=== PATIENT | female | born 1955 | race African-American/Black ===

== ENCOUNTER 2016-06-12 13:55 | Observation (INO) | payer OTHER ==
[2016-06-12] MEDS ORDERED: ASPIRIN 81 MG CHEW TAB PO ONE (13:59)
[2016-06-12] MEDS ORDERED: NITROGLYCERIN 0.4 MG TAB.SUBL SL ONE ×4 (14:00→14:49)
[2016-06-12 14:11] LABS: BASOPHILS % 0.7 (0.0-1.5); EOSINOPHILS % 2.1 % (0.0-6.8); LYMPHOCYTES # 2.8 # k/uL (0.6-4.0); MEAN CORPUSCULAR HEMOGLOBIN 28.6 pg (28.0-34.0); MONOCYTES # 0.4 # k/uL (0.0-0.9); NEUTROPHILS # 3.7 # k/uL (1.4-7.7)
[2016-06-12] MEDS ORDERED: ONDANSETRON HCL/PF 4 MG/ 2ML VIAL ONE (14:13)
[2016-06-12] MEDS ORDERED: ONDANSETRON HCL/PF 4 MG/ 2ML VIAL IVP ONE (14:16)
[2016-06-12 14:29] LABS: eGFR (African) > 60; eGFR (Non-African) > 60
[2016-06-12] MEDS ORDERED: MAG HYDROX/AL HYDROX/SIMETH 30 ML, Lidocaine 2%Visc 15ml 20 MG, PHENobarb/HYOSCY/ATROPI... PO ONE ×3 (14:49)
[2016-06-12] MEDS ORDERED: MAG HYDROX/AL HYDROX/SIMETH 30 ML UDC PO ONE (14:54)
[2016-06-12] MEDS ORDERED: Lidocaine 2%Visc 15ml 20 MG/ML UDC ONE (14:54)
--- NOTE | 2016-06-12 15:02 | ED Physician Documentation ---
Chest Pain - HISTORIAN Historian: patient - HPI Stated Complaint: Chest Pressure Chief Complaint: Chest Pain Onset: hours (1200) Timing: sudden onset, still present Last known Well Date: 06/12/16 Last Known Well Time: 12:00 Last known Well Code/Unknown Code: Known Context: rest Severity: severe Quality: pressure, tightness, other ("something is sitting on my chest") Chest Pain Radiation: arms Chest Pain Signs/Symptoms: nausea, dizziness, dyspnea. denies: vomiting, diaphoresis, cool extremities, tachypnea, tachycardia, hypotension, palpitations Worsened By: nothing Relieved By: nothing Further Comments: yes (60 year old female patient presents with chest pain. States "it feels like my heart is pounding and someone is sitting on my chest", rates pain 8/10, accompanied by SOB and nausea. Denies diaphoresis with onset. Patient reports she has been out of her insulin for some time and out of her lisinopril. Last dose of lisinopril was yesterday.) - ROS CONST: none MS/LYMPH: none GI/: nausea. denies: abdominal pain, problems urinating, vomiting, diarrhea EYES/ENT: none SKIN/ENDO: none NEURO/PSYCH: none - PAST HX PA risk factors: hypertension, diabetes Type 2, hyperlipidemia, other (lumbar disc disease) DVT/PE Risk Factors: none TAD/AAA risk factors: none Neuro deficit: none GI disease: none Lung disease: none Surgeries/Procedures: hysterectomy, other (Lumbar x 3 (2009, 2010, 2011) L3, L4 , L5) Allergies/Adverse Reactions: Allergies Allergy/AdvReac Type Severity Reaction Status Date / Time No Known Allergies Allergy Verified 10/03/14 18:41 Home Medications: Ambulatory Orders Medication Instructions Recorded Atorvastatin Calcium [Lipitor] 40 mg PO DAILY u2 08/31/15 - SOCIAL HX Smoking History: cigarettes - FAMILY HX Family HX: CAD over 55 - VITAL SIGNS Vital Signs: Vital Signs Temp Pulse Resp BP Pulse Ox 97 F L 82 18 190/108 99 06/12/16 13:55 06/12/16 13:59 06/12/16 13:55 06/12/16 13:55 06/12/16 13:59 - REVIEWED ASSESSMENTS Nursing Assessment Reviewed: Yes Vitals Reviewed: Yes Progress - Progress Progress: CP improved 4/8 after 1st nitro, 2nd given CP 2/8 after 2nd nitro 1450 Patient continues to c/o "pressure" only, states pain is gone. 3rd nitro given and nitro paste applied. Will also give GI cocktail. Recommended admission or transfer for cardiac evaluation. Patient states she would "prefer admission at [facility]". [address] Jasmine, will keep for observation admission, R/O PA. Will need to restart insulin therapy as well. Patient agrees to admission - EKG/XRAY/CT EKG: rhythm (SR, no acute changes, rate 75) ED Results Lab/Radiology - Lab Results Lab Results: Lab Results 06/12/16 06/12/16 06/12/16 14:05 14:05 14:05 WBC 7.20 K/ul K/ul (4.00-12.00) RBC 4.70 M/ul M/ul (3.90-5.20) Hgb 13.4 g/dL g/dL (12.0-16.0) Hct 40.6 % % (34.5-46.5) MCV 86.6 fl fl (80.0-100.0) MCH 28.6 pg pg (28.0-34.0) MCHC 33.1 g/dL g/dL (30.0-36.0) RDW 12.8 % % (11.3-14.3) Plt Count 266 K/mm3 K/mm3 (130-400) Neut % (Auto) 51.1 % % (39.0-79.0) Lymph % (Auto) 39.5 % % (16.0-50.0) [place] % (Auto) 5.0 % % (0.0-11.0) Eos % (Auto) 2.1 % % (0.0-6.8) Baso % (Auto) 0.7 (0.0-1.5) Neut # 3.7 # k/uL # k/uL (1.4-7.7) Lymph # 2.8 # k/uL # k/uL (0.6-4.0) [place] # 0.4 # k/uL # k/uL (0.0-0.9) Eos # 0.2 # k/uL # k/uL (0.0-0.6) Baso # 0.0 # k/uL # k/uL (0.0-0.5) Reactive Lymphs % 1.6 % % (0.0-5.0) Reactive Lymphs # 0.1 # k/uL # k/uL (0.0-0.8) Sodium 136 mmol/L mmol/L (136-145) Potassium 4.2 mmol/L mmol/L (3.5-5.0) Chloride 100 mmol/L mmol/L (98-110) Carbon Dioxide 29 mmol/L mmol/L (20-32) BUN 13 mg/dL mg/dL (10-26) Creatinine 0.7 mg/dL mg/dL (0.4-1.5) Estimated Creat Clear 136 Est GFR ( Amer) > 60 (60 - ) Est GFR (Non-Af Amer) > 60 (60 - ) Glucose 255 mg/dL H mg/dL (70-99) Calcium 9.8 mg/dL mg/dL (8.5-10.5) Total Bilirubin 0.3 mg/dL mg/dL (0.2-1.2) AST 17 U/L U/L (0-41) ALT 14 U/L U/L (0-45) Alkaline Phosphatase 83 U/L U/L (46-116) Creatine Kinase 158 U/L U/L (0-225) CK-MB (CK-2) 1.2 ng/mL ng/mL (0.0-5.6) Troponin I < 0.03 ng/mL L ng/mL (0.03-0.06) Total Protein 7.5 g/dL g/dL (6.0-8.5) Albumin 4.3 g/dL g/dL (3.0-5.5) - Radiology Radiology Impressions: Chest -one view CLINICAL HISTORY: Chest pain. FINDINGS: Examination of the chest single portable AP view 06/12/2016 1404 hr with no prior film for comparison demonstrates minimal discoid atelectasis in the left base. The right lung is clear. Cardiovascular and mediastinal silhouettes are within normal limits. The aorta is atherosclerotic. Monitor leads superimpose the chest. IMPRESSION: Minimal discoid atelectasis in the left base. Electronically signed on Jun 12, 2016 2:22:35 PM CDT by: Erick Wilkinson - Orders Orders: ED Orders Category Date Time Status Continuous EKG monitoring Q30M Care 06/12/16 13:59 Active Continuous Pulse Oximetry Q30M Care 06/12/16 13:[address] Saline Lock/IV NOW Care 06/12/16 13:59 Active CHEST 1 VIEW [RAD] Stat Exams 06/12/16 13:59 Ordered CBC/PLATELET/DIFF Stat Lab 06/12/16 14:05 Completed CKMB Stat Lab 06/12/16 14:05 Completed CMP Stat Lab 06/12/16 14:05 Completed CREATINE KINASE Stat Lab 06/12/16 14:05 Completed TROPONIN I (cTnI) Stat Lab 06/12/16 14:05 Completed Aspirin Med 06/12/16 13:59 Discontinued 324 mg PO NOW ONE Lidocaine 2%Visc 15ml [Xylocaine] Med 06/12/16 14:54 Discontinued 600 mg .ROUTE .STK-MED ONE Mag Hydrox/Al Hydrox/Simeth [Mylanta] Med 06/12/16 14:54 Discontinued 30 ml PO .STK-MED ONE Mag Hydrox/Al Hydrox/Simeth [Mylanta] 30 ml Med 06/12/16 14:49 Discontinued Lidocaine 2%Visc 15ml [Xylocaine] 20 mg PHENobarb/HYOSCY/ATROPINE/SCOP [] 10 ml PO NOW Nitroglycerin [Nitro-Bid] Med 06/12/16 21:00 Ordered 1 appl TD BID Nitroglycerin [Nitroquick] Med 06/12/16 14:00 Discontinued 0.4 mg SL .STK-MED ONE Nitroglycerin [Nitroquick] Med 06/12/16 14:00 Discontinued 0.4 mg SL NOW ONE Nitroglycerin [Nitroquick] Med 06/12/16 14:16 Discontinued 0.4 mg SL NOW ONE Nitroglycerin [Nitroquick] Med 06/12/16 14:49 Discontinued 0.4 mg SL NOW ONE Ondansetron HCl/Pf [Zofran 4 mg/2 ml] Med 06/12/16 14:13 Discontinued 4 mg .ROUTE .STK-MED ONE Ondansetron HCl/Pf [Zofran 4 mg/2 ml] Med 06/12/16 14:16 Discontinued 4 mg IVP NOW ONE Oxygen Daily Oxygen 06/12/16 14:00 Ordered EKG WITH COMPARISON Stat Ther 06/12/16 13:59 Ordered Chest Pain Physical Exam - EXAM General Appearance: moderate distress EENT: eye inspection normal, [place] Respiratory: no resp. distress, nml breath sounds CVS: reg. 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 Neuro: oriented X3, CN's nml as tested, motor nml, sensation nml, mood/affect nml Discharge Clincal Impression: Chest pain, rule out acute myocardial infarction Chest pain Qualifiers: Chest pain type: unspecified Qualified Code(s): R07.9 - Chest pain, unspecified Hypertension Qualifiers: Hypertension type: essential hypertension Qualified Code(s): I10 - Essential ( primary) hypertension Diabetes mellitus, insulin dependent (IDDM), uncontrolled Qualifiers: Diabetes mellitus complication status: without complication Qualified Code(s): E10.9 - Type 1 diabetes mellitus without complications Referrals: Primary Doctor,No [Primary Care Provider] - 2 Days Home Medications: Ambulatory Orders Atorvastatin Calcium [Lipitor] 40 mg PO DAILY u2 08/31/15 Condition: Stable Disposition: ADMITTED INPATIENT Decision to Admit: NO Decision Time: 15:13
[2016-06-12] MEDS: NITROGLYCERIN 2% 1GM OINT PACKET...G. TD SCH (15:05)
--- NOTE | 2016-06-12 15:05 | Diagnostic Imaging Report ---
[facility] [address] [facility].[address] [address] Report Submission Date: Jun 12, 2016 2:22:35 PM CDT Patient Study Name: VIET JOHNSTON Date: Jun 12, 2016 2:04:19 PM CDT Modality Type: CR Gender: F Description: CHEST : 55 Institution: [facility] Physician JAEL LANZA (CLINIQUE COUNTER MANAGER) - ER Chest -one view CLINICAL HISTORY: Chest pain. FINDINGS: Examination of the chest single portable AP view 06/12/2016 1404 hr with no prior film for comparison demonstrates minimal discoid atelectasis in the left base. The right lung is clear. Cardiovascular and mediastinal silhouettes are within normal limits. The aorta is atherosclerotic. Monitor leads superimpose the chest. IMPRESSION: Minimal discoid atelectasis in the left base. Electronically signed on Jun 12, 2016 2:22:35 PM CDT by: Erick CURRAN
--- NOTE | 2016-06-12 17:38 | History and Physical Report ---
History of Present Illnes - History of Present Illness Reason for Visit: chest pain History of Present Illness: 60 yoAfricanAmerican female who developed some substrenal chest pain at 0900 today. No preciptating factors. No modifying factors noted. Gradually go worse wnd felt like indigestion. Did have some SOB, no diaphoresis noted. Has had some spell where wher heart will beat fast and if she sits down it seems to help. If she takes some Zantac it seems to help. Gets nauseated at times. Having some diarrhea, no blood in stools. 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 denies: Pneumococcal Vaccine Influenza Vaccine: Current for this Influenza Season Pneumonia Vaccine: No Resuscitation Status: Resusciation Status Resuscitation Status Full Code - Unable to Obtain History Unable to Obtain: Yes Review of Systems - Review of Systems Constitutional: negative: Fever, Chills Eyes: negative: pain, vision change ENT: negative: Ear Pain, Ear Discharge, Nose Pain, Nose Discharge, Nose Congestion, Mouth Pain, Throat Pain Respiratory: negative: Cough, Dry, Shortness of Breath, Hemoptysis, SOB with Excertion, Pleuritic Pain, Sputum, Wheezing Cardiovascular: Chest Pain. negative: Palpitations, Orthopnea, Paroxysmal Noc. Dyspnea, Edema, Light Headedness Gastrointestinal: Nausea. negative: Vomiting, Abdominal Pain, Diarrhea, Constipation, Melena, Hematochezia Genitourinary: negative: Dysuria, Frequency, Incontinence, Hematuria Musculoskeletal: negative: Neck Pain, Shoulder Pain, Arm Pain Skin: negative: Rash Neurological: negative: Weakness, Numbness, Incoordination, Change in Speech, Confusion, Seizures - Medications/Allergies Allergies/Adverse Reactions: Allergies Allergy/AdvReac Type Severity Reaction Status Date / Time No Known Allergies Allergy Verified 10/03/14 18:41 Current Inpatient Medications: Current Inpatient Medications Nitroglycerin (Nitro-Bid) 1 appl TD BID [facility] Last Admin: 06/12/16 15:05 Dose: 1 appl Sodium Chloride (Normal Saline Flush) 3 ml IV BID [facility] Exam - Exam Vital Signs: Vital Signs (72 hours) 06/12/16 15:35 Pulse Rate [ 68 Pulse ox] Respiratory 18 Rate Blood Pressure 170/68 [Left Arm] O2 Sat by Pulse 99 Oximetry General: Alert, Oriented to Person, Oriented to Place, Oriented to Time, Cooperative HEENT: Atraumatic, PERRLA, EOMI, Mouth Mucous membr. moist/[place], Nose Mucous membr. moist/[place], Hearing Grossly Normal Neck: Normal Range of Motion Carotids: WNL Thyroid: WNL Lungs: Clear to auscultation, Normal air movement, Speaks full Sentences. No: Wheezes, Rales, Rhonchi Cardiovascular: Regular rate, Normal S1, Normal S2, No murmurs. No: Gallops, Rubs, Murmur Murmur: No: Systolic Murmur Abdomen: Normal bowel sounds, Soft, No hepatospenomegaly, No masses, Other ( mild epigastric tenderness). No: Distended Integumentary: Normal, [place], Warm, Dry Extremities: No clubbing, No cyanosis, No edema, Normal pulses, No tenderness/ swelling Neurological: Normal gait, Normal speech, Strength Equal Bilat, Normal tone, Sensation intact, Cranial nerves 3-12 NL, Reflexes 2+ Psych/Mental Status: Mental status NL, Mood NL, Appropriate Affect, Intact Judgment Assessment/Plan - Assessment/Plan (1) Chest pain Status: Acute Current Visit: Yes Qualifiers: Chest pain type: unspecified Qualified Code(s): R07.9 - Chest pain, unspecified Assessment: will get serial cardiac enzymes and EKGs. observe for any further chest pain. Will start PPI for possible GERDs. (2) Diabetes mellitus, insulin dependent (IDDM), uncontrolled Status: Chronic Current Visit: Yes Qualifiers: Diabetes mellitus complication status: without complication Qualified Code( s): E10.9 - Type 1 diabetes mellitus without complications (3) Hypertension Status: Chronic Current Visit: Yes Qualifiers: Hypertension type: essential hypertension Qualified Code(s): I10 - Essential (primary) hypertension VTE Assessment - RISK FACTOR SCORE VTE RISK FACTOR SCORES: AGE 40-60 YEARS - RISK VTE LOW RISK: SCORE OF 1 OR LESS (RISK PROXIMAL DVT 0.4%) NO PROPHYLAXIS NEEDED
[2016-06-12 17:39] VITALS: BMI 29.5
[2016-06-12] MEDS ORDERED: PANTOPRAZOLE SODIUM 40 MG TABLET PO ONE (17:48)
[2016-06-12] MEDS: SALINE FLUSH 10 ML DISP.SYRIN IV SCH (19:35)
[2016-06-12] MEDS ORDERED: INSULIN REGULAR, HUMAN 100 UNIT/ML 3ML VIAL SQ ONE (20:24)
[2016-06-13] MEDS: INSULIN REGULAR, HUMAN 100 UNIT/ML 3ML VIAL SQ SCH ×2 (07:52→12:08)
[2016-06-13] MEDS ORDERED: HYDROCHLOROTHIAZIDE 25 MG TABLET PO SCH (09:00)
[2016-06-13] MEDS ORDERED: LISINOPRIL 20 MG TABLET PO SCH (09:00)
[2016-06-13] MEDS: NITROGLYCERIN 2% 1GM OINT PACKET...G. TD SCH (09:31)
[2016-06-13] MEDS: SALINE FLUSH 10 ML DISP.SYRIN IV SCH (09:32)
--- NOTE | 2016-06-13 13:01 | Discharge Summary ---
Discharge Summary - Discharge Sumary History of Present Illness: 60 yo female who developed some substrenal chest pain at 0900 today. No precipitating factors. No modifying factors noted. Gradually got worse and felt like indigestion. Did have some SOB, no diaphoresis noted. Has had some spell where where heart will beat fast and if she sits down it seems to help. If she takes some Zantac it seems to help. Gets nauseated at times. Having some diarrhea, no blood in stools Condition at Discharge: Stable Home Medications: Ambulatory Orders Medication Instructions Recorded Atorvastatin Calcium [Lipitor] 40 mg PO DAILY u2 08/31/15 Metformin HCl [Metformin HCl ER] 1,000 mg PO BID #60 tab.er.24 06/13/16 Omeprazole 20 mg PO D #30 capsule. 06/13/16 Consultations this Visit: None Procedures this Visit: None Allergies/Adverse Reactions: Allergies Allergy/AdvReac Type Severity Reaction Status Date / Time No Known Allergies Allergy Verified 10/03/14 18:41 Discharge Summary: Patient had serial cardiac enzymes and EKGs done. Cardiac enzymes remained normal. EKG did not show any acute ischemic changes. Patient denies any further chest pain during the hospitalization. Patient was Protonic 40 mg daily. Social service consult were done to help atient find ways to afford her medications. Patient was given samples of Toujeo upon discharge. Patient was started on a proton pump inhibitor. It was felt that her chest pain was related to gastroesophageal reflux. Upon discharge. Patient was encouraged to start checking her blood sugars on a regular basis. Patient was advised to try to cut down on her caffeine and tobacco intake. Patient was discharged in stable condition - Final Diagnosis (1) Chest pain Problems: [place] to be related to GERDs (2) Diabetes mellitus, insulin dependent (IDDM), uncontrolled Problems: Restart insulin therapy, patient given samples of Toujeo. (3) Hypertension Problems: stable continue with home meds
[2016-06-13 13:51] VITALS: BP 142/68
== END 2016-06-13 13:50 | disposition home or self-care (01) ==
LOC: ED 13:55 → INTOOBSV 15:33 → SOUTH 15:33
PROVIDERS: ADMIT Family Medicine; ATTEND Family Medicine
DX: R07.9 Chest pain, unspecified (principal); E11.9 Type 2 diabetes mellitus without complications; I10 Essential (primary) hypertension
CPT/HCPCS: 71010; 80053; 80061; 82550; 82553; 84484; 85025; 96372; 96374; 99284; J2405; A9270-GY; G0378; G0379; J1815; S1016

== ENCOUNTER 2018-01-05 09:00 | Outpatient (CLI) | payer OTHER ==
[2018-01-05 10:03] LABS: eGFR (Non-African) > 60
== END 2018-01-05 13:17 ==
LOC: LAB 09:00
PROVIDERS: ATTEND Family Medicine
DX: E11.9 Type 2 diabetes mellitus without complications (principal); E78.00 Pure hypercholesterolemia, unspecified; I10 Essential (primary) hypertension
CPT/HCPCS: 36415; 80053; 80061; 82043; 83036

== ENCOUNTER 2018-03-02 09:01 | Day surgery (SDC) | payer OTHER ==
[~2018-03-02 09:01] MED LIST: PROPOFOL 200 MG/20 ML VIAL IV ONE
--- NOTE | 2018-03-02 14:36 | GI Report ---
REFERRING PHYSICIAN: Dr. Ron Jasmine [employer] FRY COOK: Lisandro Arreaga MD PROCEDURE MEDICATION: Propofol as per anesthesia. INDICATIONS: This is a 62-year-old woman who is referred for a screening. She denies any known change in her bowel habits. She is a diabetic and her hemoglobin A1C recently was like 14. She has been a cigarette smoker for 40 years and unfortunately, she still smokes. She has had back surgery. No abdominal surgery. PROCEDURE PERFORMED: Colonoscopy and polypectomy. PROCEDURE: An Olympus video colonoscope was advanced to the rectum. She had just a fair prep. The colonoscope was slowly advanced to the cecum. We did have to lavage to improve visibility. We did reach the cecum. The appendiceal orifice and ileocecal valve looked normal. On slow withdrawal, the ascending colon had no obvious intraluminal lesions noted as best as we could see. In the mid- transverse colon, she had a 3 to 4 mm flat polyp removed with a cold snare. The descending colon, again, had a lot of redundancy. No obvious intraluminal lesions were noted. At the rectosigmoid junction, she had a 3 to 4 mm polyp removed with electrocautery. In the rectum, she may have half a dozen or so 2 mm hyperplastic-appearing polyps that were not removed because they were so small and pretty obviously hyperplastic. Patient tolerated the procedure well. FINDINGS: Two polyps removed. RECOMMENDATIONS: 1. Pending the pathology of the polyps, consider re-looking at her colon in 5 years. 2. Recommend strongly she discontinue tobacco usage. It is a risk factor for colon cancer, as well as she has diabetes under poor control. 3. Get her on a rigid diabetic diet. 4. Follow up with Dr. Jasmine. cc: Dr. Ron CURRAN
== END 2018-03-02 09:03 ==
LOC: OPSURG 09:01
PROVIDERS: ATTEND Internal Medicine Gastroenterology
DX: Z12.11 Encounter for screening for malignant neoplasm of colon (principal); D12.3 Benign neoplasm of transverse colon; K63.5 Polyp of colon; D12.8 Benign neoplasm of rectum; Q43.8 Other specified congenital malformations of intestine; E11.9 Type 2 diabetes mellitus without complications; Z72.0 Tobacco use
CPT/HCPCS: 45384; 45385; 88305; J2704; S1016

== ENCOUNTER 2018-03-21 10:12 | Emergency (ER) | payer OTHER ==
[2018-03-21 11:09] VITALS: BP 129/78
[2018-03-21] MEDS ORDERED: ACETAMINOPHEN 325 MG TABLET PO STA (11:40)
--- NOTE | 2018-03-21 11:46 | ED Physician Documentation ---
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 pt presents to the ED via POV c/o fall last night on to right outstretched hand. pt reports right wrist/hand pain 9/10, worse with movement. denies other symptoms or complaints. 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 pt denies current chest pain, dyspnea, syncope/near syncope, headache, dizziness, visual disturbances, n/v/d, fever/chills, rash, sick contacts, dysuria,. melena or hematochezia, bleeding or easy bruising, change in bowel or bladder function, no recent weight loss/gain, anxiety or depression. ROS Negative unless otherwise specified. Onset: yesterday Where: home Context: fall Associated Symptoms: denies: tingling, numbness distally, feeling loss, loss of power to arms Modifying Factors: pain on movement - ROS CONST: no problems. denies: fever, chills CVS/RESP: denies: chest pain, shortness of breath, cough NEURO: denies: headache, anxiety, depression MS/SKIN/LYMPH: denies: neck pain, back pain, foot swelling, ankle swelling, rash GI/: denies: problems urinating, nausea, vomiting - PAST HX Past History: other (HTN DM1) Allergies/Adverse Reactions: Allergies Allergy/AdvReac Type Severity Reaction Status Date / Time No Known Drug Allergies Allergy Verified 03/21/18 11:09 Home Medications: Ambulatory Orders Medication Instructions Recorded Metformin HCl [Metformin HCl ER] 1,000 mg PO BID #60 tab.er.24 06/13/16 Omeprazole 20 mg PO D #30 capsule. 06/13/16 - SOCIAL HX Smoking History: non-smoker Alcohol Use: none Drug Use: none - FAMILY HX Family History: none - VITAL SIGNS Vital Signs: Vital Signs Temp Pulse Resp BP Pulse Ox 97.9 F 99 H 18 129/78 99 03/21/18 11:02 03/21/18 11:02 03/21/18 11:02 03/21/18 11:02 03/21/18 11:02 - REVIEWED ASSESSMENTS Nursing Assessment Reviewed: Yes Vitals Reviewed: Yes Progress - Progress Progress: Report Submission Date: Mar 21, 2018 11:52:56 AM MERRY GO ROUND ATTENDANT Patient Study Name: VIET HAWKINS Date: Mar 21, 2018 11:25:00 AM MERRY GO ROUND ATTENDANT Modality Type: DX Gender: F Description: UPPER EXTREMITY : 55 Institution: [facility] Physician: JOAQUÍN ALVA Right wrist, 3 views History: Fall, injury, pain Findings: There is no fracture, dislocation or abnormal bone production or destruction. Mild degenerative changes noted in the carpal bones. Impression: Mild degenerative change but no acute abnormality. Electronically signed on Mar 21, 2018 11:52:56 AM MERRY GO ROUND ATTENDANT by: Jay Cardenas Report Submission Date: Mar 21, 2018 11:50:47 AM MERRY GO ROUND ATTENDANT Patient Study Name: VIET HAWKINS Date: Mar 21, 2018 11:21:35 AM MERRY GO ROUND ATTENDANT Modality Type: DX Gender: F Description: UPPER EXTREMITY : 55 Institution: [facility] Physician: JOQAUÍN ALVA Right hand, 4 images History: Fall Findings: There is no fracture, dislocation or abnormal bone production or destruction. Mild degenerative changes are present in the carpal bones and interphalangeal joints. Impression: No acute abnormality. Electronically signed on Mar 21, 2018 11:50:47 AM MERRY GO ROUND ATTENDANT by: Jay Whelan ED Results Lab/Radiology - Orders Orders: ED Orders Category Date Time Status HAND XRAY [HAND 3 VIEWS OR MORE] [RAD] Stat Exams 03/21/18 Ordered WRIST 3 VIEWS OR MORE [RAD] Stat Exams 03/21/18 Ordered Acetaminophen [Tylenol] Med 03/21/18 11:40 Stat 650 mg PO NOW STA Upper Extremity Injury Physic - Physical Exam General Appearance: no acute distress, alert Hand: no evidence of injury, normal ROM, soft tissue tenderness Wrist: limited ROM, soft tissue tenderness Elbow/Forearm: normal inspection, non-tender, no evidence of injury, normal ROM Shoulder: normal inspection, non-tender, no evidence of injury, normal ROM Neuro/Vascular/Tendon: no vascular compromise, motor nml, sensation nml, ROM nml Skin: warm,dry Head/ENT: nml inspection, pharynx nml Neck/Back: nml inspection, non-tender Resp/CVS: chest non-tender, no resp. distress Abdomen: non-tender, pelvis stable Discharge Clincal Impression: Sprain Additional Instructions: Ibuprofen 600 mg every 6 hours for fever/inflammation Tylenol 650 mg every 4-6 hours for pain/fever Rest. Ice for 20 min intervals. passive range of motion exercises. follow up with primary care in 2-3 weeks if not improving as expected. seek medical care immediately if increased pain/swelling or any concern. PLEASE UNDERSTAND THAT THIS IS AN EMERGENCY EVALUATION FOR YOUR COMPLAINT AND BY NATURE IS LIMITED AND NOT A SUBSTITUTE FOR ONGOING MEDICAL CARE. EVEN THOUGH TEST RESULTS AND TREATMENT PLAN WERE EXPLAINED THERE MAY BE A NEED FOR ADDITIONAL TESTING TO FULLY DETERMINE THE EXTENT OF YOUR ILLNESS/INJURY/OR CONCERN SO YOU SHOULD CONTACT AND OR ESTABLISH WITH A PRIMARY CARE PROVIDER (OR REFERRAL DOCTOR IF APPLICABLE) FOR AN APPOINTMENT SOON POSSIBLE Condition: Good Disposition: 01 HOME, SELF-CARE Decision to Admit: NO Date of Decison to Admit: 03/21/18 Decision Time: 11:55
--- NOTE | 2018-03-21 12:27 | Diagnostic Imaging Report ---
JOAQUÍN ALVA [facility] [address] [facility] [address] [address] Report Submission Date: Mar 21, 2018 11:52:56 AM RETRIEVAL SPECIALIST Patient Study Name: VIET HAWKINS Date: Mar 21, 2018 11:25:00 AM RETRIEVAL SPECIALIST Modality Type: DX Gender: F Description: UPPER EXTREMITY : 55 Institution: [facility] Physician: JOAQUÍN ALVA Right wrist, 3 views History: Fall, injury, pain Findings: There is no fracture, dislocation or abnormal bone production or destruction. Mild degenerative changes noted in the carpal bones. Impression: Mild degenerative change but no acute abnormality. Electronically signed on Mar 21, 2018 11:52:56 AM RETRIEVAL SPECIALIST by: Jay CURRAN
--- NOTE | 2018-03-21 12:28 | Diagnostic Imaging Report ---
JOAQUÍN ALVA [facility] [address] [facility] [address] [address] Report Submission Date: Mar 21, 2018 11:50:47 AM CORRECTIONAL OFFICER SERGEANT Patient Study Name: VIET HAWKINS Date: Mar 21, 2018 11:21:35 AM CORRECTIONAL OFFICER SERGEANT Modality Type: DX Gender: F Description: UPPER EXTREMITY : 55 Institution: [facility] Physician: JOAQUÍN ALVA Right hand, 4 images History: Fall Findings: There is no fracture, dislocation or abnormal bone production or destruction. Mild degenerative changes are present in the carpal bones and interphalangeal joints. Impression: No acute abnormality. Electronically signed on Mar 21, 2018 11:50:47 AM CORRECTIONAL OFFICER SERGEANT by: Jay CURRAN
== END 2018-03-21 12:06 | disposition home or self-care (01) ==
LOC: ED 10:12
DX: S63.501A Unspecified sprain of right wrist, initial encounter (principal); W19.XXXA Unspecified fall, initial encounter; Y93.9 Activity, unspecified; Y92.9 Unspecified place or not applicable
CPT/HCPCS: 73110; 73130; 99282; 99283

== ENCOUNTER 2018-09-14 09:36 | Outpatient (CLI) | payer OTHER ==
--- NOTE | 2018-09-14 10:35 | Diagnostic Imaging Report ---
HUBER GHOSH [facility] [id number] [facility] [address] [address] Report Submission Date: Sep 14, 2018 10:17:33 AM CDT Patient Study Name: VIET HAWKINS Date: Sep 14, 2018 9:43:08 AM CDT Modality Type: DX Gender: F Description: TOES 2 VIEWS OR MORE : 55 Institution: [facility] Physician: HUBER GHOSH Examination: Plain film right toes History: INJURY TO 5TH TOE Findings: 3 views of the right 5th digit demonstrates osteopenia. Articular degenerative changes. Lucency involving the base of the proximal phalanx 5th digit. No other acute appearing cortical abnormality. Impression: Nondisplaced fracture base proximal phalanx 5th digit. Electronically signed on Sep 14, 2018 10:17:33 AM CDT by: Bharath CURRAN
== END 2018-09-14 09:38 ==
LOC: RAD 09:36
PROVIDERS: ATTEND Family Medicine
DX: S99.921A Unspecified injury of right foot, initial encounter (principal)
CPT/HCPCS: 73660

== ENCOUNTER 2018-10-20 10:39 | Outpatient (CLI) | payer SELFPAY ==
--- NOTE | 2018-10-20 11:41 | Diagnostic Imaging Report ---
RON GHOSH [facility] [address] [facility] [address] Report Submission Date: Oct 20, 2018 11:41:06 AM CDT Patient Study Name: VIET HAWKINS Date: Oct 20, 2018 11:15:45 AM CDT Modality Type: DX Gender: F Description: TOES 2 VIEWS OR MORE : 55 Institution: [facility] Physician: RON GHOSH Right toes 3 view. Clinical history: Trauma. There is a transverse impacted fracture the proximal shaft of the proximal phalanx of the right 5th toe. Impression: Nondisplaced fracture of the proximal phalanx of the right 5th toe. Electronically signed on Oct 20, 2018 11:41:06 AM CDT by: Ron CURRAN
== END 2018-10-20 10:42 ==
LOC: RAD 10:39
PROVIDERS: ATTEND Family Medicine
DX: S92.514D Nondisplaced fracture of proximal phalanx of right lesser toe(s), subsequent encounter for fracture with routine healing (principal); X50.9XXD Other and unspecified overexertion or strenuous movements or postures, subsequent encounter
CPT/HCPCS: 73660